=== PATIENT | male | born 1960 | race Caucasian/White ===

== ENCOUNTER 2018-11-17 09:46 | Emergency (ER) | payer OTHER ==
[2018-11-17] MEDS ORDERED: NA CHLORIDE 0.9% 1,000 ML ONE (10:10)
[2018-11-17 10:25] LABS: Protime INR 0.88
[2018-11-17 10:31] LABS: Absolute Lymphocytes (CBC) 2.1 K/uL (0.7-4.9); Basophils % 0.5 % (0-1.3); Hematocrit 40.9 % (39.6-49.0); Lymphocytes % 27.2 % (15.3-44.8); MPV 10.5 fL (7.6-11.3); RBC Red Blood Cell Count 4.61 M/uL (4.33-5.43)
[2018-11-17 10:38] LABS: ALT/SGPT 18 U/L (12-78); AST/SGOT 19 U/L (15-37); Alkaline Phosphatase 56 U/L (45-117); BUN Blood Urea Nitrogen 12 mg/dL (7-18); Bicarbonate 28 mmol/L (21-32); Bilirubin Direct 0.2 mg/dL (0-0.2); Bilirubin Total 0.5 mg/dL (0.2-1.0); Glucose Level 101 mg/dL (74-106); Magnesium 2.7 mg/dL (1.8-2.4); NT PRO-BNP 72 pg/mL (<125); Protein, Total 7.4 g/dL (6.4-8.2); Sodium Level 144 mmol/L (136-145); Troponin I < 0.02 ng/mL (0.0-0.045)
--- NOTE | 2018-11-17 11:07 | RAD REPORT ---
EXAM DESCRIPTION: RAD - Chest Single View - 11/17/2018 10:50 am CLINICAL HISTORY: CHEST PAIN Chest pain. COMPARISON: Chest Single View dated 03/21/2016 FINDINGS: Portable technique limits examination quality. The lungs are grossly clear. The heart is normal in size. No displaced fractures. IMPRESSION: No acute intrathoracic process suspected.
--- NOTE | 2018-11-17 11:19 | EKG ---
Test Date: 2018-11-17 Test Time: 10:09:32 Licensed And Certified Midwife: RADHAMES MEASUREMENT RESULTS: Intervals: Rate: 50 OR: 170 QRSD: 98 QT: 442 QTc: 402 Kent: P: 38 OR: 170 QRS: 6 T: 28 INTERPRETIVE STATEMENTS: Sinus bradycardia Otherwise normal ECG Compared to ECG 03/21/2016 14:17:26 No significant changes Electronically Signed On 11-17-18 11:18:35 CDT by Robert Crabtree
[2018-11-17] MEDS ORDERED: PROMETHAZINE 25 MG/ML VIAL ONE (11:34)
[2018-11-17] MEDS ORDERED: SUCRALFATE 1 GM TABLET ONE (11:42)
[2018-11-17 12:22] LABS: Urine Blood NEGATIVE (NEG); Urine Glucose NEGATIVE (NEG); Urine Protein NEGATIVE (NEG); Urine pH 6.5 (5.0-7.0)
[2018-11-17 13:18] LABS: Barbiturates NEGATIVE (NEGATIVE); Benzodiazepines NEGATIVE (NEGATIVE); Cocaine NEGATIVE (NEGATIVE); METHAMPHETAM NEGATIVE (NEGATIVE); Methadone NEGATIVE (NEGATIVE); Opiates NEGATIVE (NEGATIVE); Phencyclidine NEGATIVE (NEGATIVE); THC Cannibis POSITIVE (NEGATIVE)
--- NOTE | 2018-11-17 13:43 | EDPHYS ---
Physician Documentation [facility] Name: Orion Nava Age: 58 yrs Sex: Male : 1960 Arrival Date: 11/17/2018 Time: 09:47 Bed 6 Private MD: De Bustillos ED Physician Remy Montenegro HPI: 11/17 10:18 This 58 yrs old Male presents to ER via Wheelchair with complaints of Chest snw Tightness, Nausea, Anxiety. 10:18 The patient or guardian reports chest pain that is located primarily in the anterior snw chest wall, left. Onset: gradually, 4 day(s) ago, and became persistent. The pain does not radiate. Associated signs and symptoms: Pertinent positives: dizziness, nausea. The chest pain is described as a heaviness. Duration: The patient or guardian reports multiple episodes. Severity of pain: At its worst the pain was mild. The patient has not experienced similar symptoms in the past. The patient has not recently seen a physician, appt with Dr. Bustillos tomorrow. Pt states he got too hot on Friday, got cooled off, drank plenty of water, tea. Stood and had near syncope, ten minutes later pt stood again and had a syncopal episode. Historical: - Allergies: 10:01 No Known Allergies; iw - Home Meds: 10:01 None [Active]; iw - PMHx: 10:01 Ulcers; iw - PSHx: 10:01 Gastric Bypass; iw - Immunization history:: Adult Immunizations up to date. - Social history:: Smoking status: Patient uses tobacco products, smokes one-half pack cigarettes per day. - Ebola Screening: : Patient negative for fever greater than or equal to 101.5 degrees Fahrenheit, and additional compatible Ebola Virus Disease symptoms Patient denies exposure to infectious person Patient denies travel to an Ebola-affected area in the 21 days before illness onset No symptoms or risks identified at this time. ROS: 10:16 Constitutional: Negative for fever, chills, and weight loss, Eyes: Negative for injury, snw pain, redness, and discharge, ENT: Negative for injury, pain, and discharge, Neck: Negative for injury, pain, and swelling, Back: Negative for injury and pain, : Negative for injury, bleeding, discharge, and swelling, MS/Extremity: Negative for injury and deformity, Skin: Negative for injury, rash, and discoloration. 10:16 Cardiovascular: Positive for chest pain. 10:16 Respiratory: Positive for shortness of breath. 10:16 Abdomen/GI: Positive for nausea. 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 Exam: 10:16 Constitutional: This is a well developed, well nourished patient who is awake, alert, snw and in no acute distress. Head/Face: Normocephalic, atraumatic. Eyes: Pupils equal round and reactive to light, extra-ocular motions intact. Lids and lashes normal. Conjunctiva and sclera are non-icteric and not injected. Cornea within normal limits. Periorbital areas with no swelling, redness, or edema. ENT: Nares patent. No nasal discharge, no septal abnormalities noted. Tympanic membranes are normal and external auditory canals are clear. Oropharynx with no redness, swelling, or masses, exudates, or evidence of obstruction, uvula midline. Mucous membranes moist. Neck: Trachea midline, no thyromegaly or masses palpated, and no cervical lymphadenopathy. Supple, full range of motion without nuchal rigidity, or vertebral point tenderness. No Meningismus. Chest/axilla: Normal chest wall appearance and motion. Nontender with no deformity. No lesions are appreciated. Respiratory: Lungs have equal breath sounds bilaterally, clear to auscultation and percussion. No rales, rhonchi or wheezes noted. No increased work of breathing, no retractions or nasal flaring. Abdomen/GI: Soft, non-tender, with normal bowel sounds. No distension or tympany. No guarding or rebound. No evidence of tenderness throughout. Back: No spinal tenderness. No costovertebral tenderness. Full range of motion. Skin: Warm, dry with normal turgor. Normal color with no rashes, no lesions, and no evidence of cellulitis. MS/ Extremity: Pulses equal, no cyanosis. Neurovascular intact. Full, normal range of motion. Neuro: Awake and alert, GCS 15, oriented to person, place, time, and situation. Cranial nerves II-XII grossly intact. Motor strength 5/5 in all extremities. Sensory grossly intact. Cerebellar exam normal. Normal gait. Psych: Awake, alert, with orientation to person, place and time. Behavior, mood, and affect are within normal limits. 10:16 Cardiovascular: Rate: bradycardic, Rhythm: regular, Pulses: no pulse deficits are appreciated, Edema: is not appreciated. Vital Signs: 09:55 BP 172 / 83; Pulse 49; Resp 16 S; Temp 98.4(O); Pulse Ox 98% on R/A; Pain 2/10; aa5 10:10 BP 168 / 87; Pulse 50; Resp 18 S; Pulse Ox 98% on R/A; aa5 11:00 BP 177 / 81; Pulse 46; Resp 16 S; Pulse Ox 98% on R/A; aa5 12:00 BP 150 / 74; Pulse 44; Resp 18 S; Pulse Ox 98% on R/A; aa5 13:07 BP 142 / 68; Pulse 52; Resp 16 S; Pulse Ox 97% on R/A; jl7 12:00 Pt's HR fluctuating down to 38bpm, LEAD INGOT MOLDER was notified. aa5 MDM: 10:00 Patient medically screened. snw 13:35 The patient was not given aspirin in the Emergency Department. Not indicated due to snw patient's past medical history. ALVIN Risk Score: 1 - Recent [<24hrs] Severe Angina, TOTAL SCORE = 1. Data reviewed: vital signs, nurses notes, EKG, radiologic studies. Data interpreted: Pulse oximetry: on room air is 97 %. Interpretation: normal. Counseling: I had a detailed discussion with the patient and/or guardian regarding: the historical points, exam findings, and any diagnostic results supporting the discharge/admit diagnosis, the presence of at least one elevated blood pressure reading (>120/80) during this emergency department visit, lab results, radiology results, the need for outpatient follow up, to return to the emergency department if symptoms worsen or persist or if there are any questions or concerns that arise at home, smoking cessation. Special discussion: Based on the patient's history, exam, and Dx evaluation, there is no indication for emergent intervention or inpatient Tx. It is understood by the patient/guardian that if the Sx's persist or worsen they need to return immediately for re-evaluation. I have referred the patient to see his PCP for further evaluation of high blood pressure. Based on the history and exam findings, there is no indication for further emergent testing or inpatient evaluation. I discussed with the patient/guardian the need to see the primary care provider for further evaluation of the symptoms. 11/17 10:00 Order name: Basic Metabolic Panel [facility] 11/17 10:00 Order name: CBC with Diff [facility] 11/17 10:00 Order name: LFT's [facility] 11/17 10:00 Order name: Magnesium [facility] 11/17 10:00 Order name: NT PRO-BNP [facility] 11/17 10:00 Order name: PT-INR [facility] 11/17 10:14 Order name: Basic Metabolic Panel; Complete Time: 10:40 EDMS 11/17 10:14 Order name: Liver (Hepatic) Function; Complete Time: 10:40 EDMS 11/17 10:14 Order name: Troponin I; Complete Time: 10:40 EDMS 11/17 10:14 Order name: NT PRO-BNP; Complete Time: 10:40 EDMS 11/17 10:14 Order name: Magnesium; Complete Time: 10:40 EDMS 11/17 10:14 Order name: CBC with Automated Diff; Complete Time: 10:40 EDMS 11/17 10:14 Order name: Protime (+INR); Complete Time: 10:40 EDMS 11/17 10:00 Order name: XRAY Chest (1 view); Complete Time: 11:10 w 11/17 10:00 Order name: EKG; Complete Time: 10:16 snw 11/17 10:00 Order name: Cardiac monitoring; Complete Time: 10:00 [facility] 11/17 10:00 Order name: EKG - Nurse/Tech; Complete Time: 10:00 [facility] 11/17 10:00 Order name: IV Saline Lock; Complete Time: 10:00 [facility] 11/17 10:00 Order name: Labs collected and sent; Complete Time: 10:00 [facility] 11/17 10:00 Order name: O2 Per Protocol; Complete Time: 10:00 [facility] 11/17 10:00 Order name: O2 Sat Monitoring; Complete Time: 10:00 w 11/17 10:43 Order name: CPK; Complete Time: 11:19 snw 11/17 11:53 Order name: Urine Dipstick--Ancillary (enter results); Complete Time: 12:24 11/17 12:11 Order name: UDS; Complete Time: 13:31 snw 11/17 12:55 Order name: Troponin (emerg Dept Use Only) iw 11/17 12:56 Order name: EKG; Complete Time: 12:57 snw 11/17 11:41 Order name: Repeat Cardiac Enzymes at: 1300 and repeat EKG please; Complete Time: 13:42 snw 11/17 11:41 Order name: Urine Dipstick-Ancillary (obtain specimen); Complete Time: 11:43 snw Administered Medications: 10:10 Drug: NS 0.9% 1000 ml Route: IV; Rate: 1 bolus; Site: right antecubital; aa5 11:37 Follow up: IV Status: Completed infusion; IV Intake: 1000ml aa5 11:37 Drug: Phenergan 6.25 mg Route: IVP; Site: right antecubital; aa5 11:41 Follow up: Response: No adverse reaction aa5 11:41 Drug: CarafATE 1 grams Route: PO; aa5 12:30 Follow up: Response: No adverse reaction aa5 Disposition: 15:16 Co-signature as Attending Physician, Remy Montenegro MD. rn Disposition: 11/17/18 13:33 Discharged to Home. Impression: Chest pain, unspecified, Syncope and collapse. - Condition is Stable. - Discharge Instructions: Nonspecific Chest Pain, Alcohol Use Disorder, Gastroesophageal Reflux Disease, Adult, Hypertension, Steps to Quit Smoking, Smoking Hazards, Syncope, Heat Exhaustion Information, Rehydration, Adult. - Prescriptions for Carafate 1 gram Oral Tablet - take 1 tablet by ORAL route 4 times per day take on an empty stomach, beginning on waking and last dose at bedtime; 100 tablet. - Work release form, Medication Reconciliation Form, Thank You Letter, Antibiotic Education, Prescription Opioid Use form. - Follow up: Emergency Department; When: As needed; Reason: Worsening of condition. Follow up: De Bustillos MD; When: Tomorrow; Reason: as scheduled. Signatures: Dispatcher [employer] Leonela Love FNP-C CASE REVIEWER-Csnw Darlene Vargas, RN Remy Wall MD MD rn Calderon, Audri, RN RN aa5 Vicente Huddleston RN RN jl7 Corrections: (The following items were deleted from the chart) 13:51 13:33 11/17/2018 13:33 Discharged to Home. Impression: Chest pain, unspecified; Syncope jl7 and collapse. Condition is Stable. Forms are Medication Reconciliation Form, Thank You Letter, Antibiotic Education, Prescription Opioid Use. Follow up: Emergency Department; When: As needed; Reason: Worsening of condition. Follow up: De Bustillos; When: Tomorrow; Reason: as scheduled. snw
--- NOTE | 2018-11-17 13:43 | ER ---
Nurse's Notes [facility] Name: Orion Nava Age: 58 yrs Sex: Male : 1960 Arrival Date: 11/17/2018 Time: 09:47 Bed 6 Private MD: De Bustillos Diagnosis: Chest pain, unspecified;Syncope and collapse Presentation: 11/17 09:55 Risk Assessment: Do you want to hurt yourself or someone else? Patient reports no aa5 desire to harm self or others. Initial Sepsis Screen: Does the patient meet any 2 criteria? No. Patient's initial sepsis screen is negative. Does the patient have a suspected source of infection? No. Patient's initial sepsis screen is negative. Care prior to arrival: None. 09:56 Presenting complaint: Patient states: passed out Friday while working outside, feels iw like he never fully recovered, today started feeling bad today, is nauseated and light headed today, also feels chest tightness and is anxious, not vomiting, has hx of GI ulcer. Transition of care: patient was not received from another setting of care. Onset of symptoms was November 17, 2018. 09:56 Method Of Arrival: Wheelchair iw 10:00 Acuity: DENA 2 iw Historical: - Allergies: 10:01 No Known Allergies; iw - Home Meds: 10:01 None [Active]; iw - PMHx: 10:01 Ulcers; iw - PSHx: 10:01 Gastric Bypass; iw - Immunization history:: Adult Immunizations up to date. - Social history:: Smoking status: Patient uses tobacco products, smokes one-half pack cigarettes per day. - Ebola Screening: : Patient negative for fever greater than or equal to 101.5 degrees Fahrenheit, and additional compatible Ebola Virus Disease symptoms Patient denies exposure to infectious person Patient denies travel to an Ebola-affected area in the 21 days before illness onset No symptoms or risks identified at this time. Screenin:20 Abuse screen: Denies threats or abuse. Nutritional screening: No deficits noted. aa5 Tuberculosis screening: No symptoms or risk factors identified. Fall Risk None identified. Assessment: 09:55 General: Appears uncomfortable, Behavior is calm, cooperative. Pain: Complains of pain aa5 in anterior aspect of left upper chest and left breast and LUQ Pain does not radiate. Pain currently is 2 out of 10 on a pain scale. Quality of pain is described as pressure, Pain began today Is continuous. Neuro: Level of Consciousness is awake, alert, obeys commands, Oriented to person, place, time, situation, Mysql Database Administrator are equal bilaterally Moves all extremities. Speech is normal, Facial symmetry appears normal, Pupils are PERRLA. Cardiovascular: Reports chest pain, lightheadedness, nausea, shortness of breath, syncope, Heart tones S1 S2 present Edema is absent. Rhythm is regular. Respiratory: Reports shortness of breath at rest on exertion since yesterday Airway is patent Respiratory effort is even, unlabored, Respiratory pattern is regular, symmetrical, Breath sounds are clear bilaterally. GI: Abdomen is round non-distended, Bowel sounds present X 4 quads. Abd is soft and non tender X 4 quads. Reports nausea, Patient currently denies vomiting. : No signs and/or symptoms were reported regarding the genitourinary system. Denies burning with urination, inability to void. EENT: No signs and/or symptoms were reported regarding the EENT system. Derm: Skin is pink, warm \\T\\ dry. Musculoskeletal: Range of motion: intact in all extremities. 10:10 Reassessment: Patient is alert, oriented x 3, equal unlabored respirations, skin aa5 warm/dry/pink. Pt notified of wait time for lab results and radiology results. . Pain: Pain currently is 2 out of 10 on a pain scale. 11:30 Reassessment: Pt c/o nausea, ERP notified, see MAR for orders. jl7 11:38 Reassessment: Patient is alert, oriented x 3, equal unlabored respirations, skin aa5 warm/dry/pink. Pt c/o nausea and c/o abd burning, pt states "I think my ulcer is bothering me". DRYING ROOM OPERATOR at bedside. . Pain: Pain currently is 2 out of 10 on a pain scale. 12:00 Reassessment: Patient is alert, oriented x 3, equal unlabored respirations, skin aa5 warm/dry/pink. Awaiting repeat troponin and EKG at 1300, pt notified of wait time. . 13:10 Reassessment: Patient is alert, oriented x 3, equal unlabored respirations, skin aa5 warm/dry/pink. Repeat EKG and repeat troponin completed . Vital Signs: 09:55 BP 172 / 83; Pulse 49; Resp 16 S; Temp 98.4(O); Pulse Ox 98% on R/A; Pain 2/10; aa5 10:10 BP 168 / 87; Pulse 50; Resp 18 S; Pulse Ox 98% on R/A; aa5 11:00 BP 177 / 81; Pulse 46; Resp 16 S; Pulse Ox 98% on R/A; aa5 12:00 BP 150 / 74; Pulse 44; Resp 18 S; Pulse Ox 98% on R/A; aa5 13:07 BP 142 / 68; Pulse 52; Resp 16 S; Pulse Ox 97% on R/A; jl7 12:00 Pt's HR fluctuating down to 38bpm, DRYING ROOM OPERATOR was notified. aa5 ED Course: 09:47 Patient arrived in ED. mr 09:48 De Bustillos MD is Private Physician. mr 09:50 Patient has correct armband on for positive identification. Placed in gown. Bed in low aa5 position. Call light in reach. Side rails up X2. vehicle dismantler on. Pulse ox on. NIBP on. 09:50 Arm band placed on. aa5 09:51 [facility]C [facility] snw 09:51 Remy Montenegro MD is Attending Physician. snw 09:51 Indira Mckoy, JULIANO is Primary Nurse. aa5 09:58 Initial lab(s) drawn, by mi. Inserted saline lock: 20 gauge in right antecubital area, aa5 using aseptic technique. Blood collected. 10:00 Triage completed. iw 10:19 EKG done, by racking technician. reviewed by Leonela [facility]. sm3 10:46 No provider procedures requiring assistance completed. Patient maintains SpO2 aa5 saturation greater than 95% on room air. 10:55 XRAY Chest (1 view) In Process Unspecified. EDMS 13:15 EKG done, by racking technician. reviewed by Remy Montenegro MD. sm3 13:32 De Bustillos MD is Referral Physician. snw 13:51 IV discontinued, intact, bleeding controlled, No redness/swelling at site. Pressure jl7 dressing applied. Administered Medications: 10:10 Drug: NS 0.9% 1000 ml Route: IV; Rate: 1 bolus; Site: right antecubital; aa5 11:37 Follow up: IV Status: Completed infusion; IV Intake: 1000ml aa5 11:37 Drug: Phenergan 6.25 mg Route: IVP; Site: right antecubital; aa5 11:41 Follow up: Response: No adverse reaction aa5 11:41 Drug: CarafATE 1 grams Route: PO; aa5 12:30 Follow up: Response: No adverse reaction aa5 Intake: 11:37 IV: 1000ml; Total: 1000ml. aa5 Outcome: 13:33 Discharge ordered by MD. arnold 13:51 Discharged to home ambulatory. jl7 13:51 Condition: stable 13:51 Discharge instructions given to patient, Instructed on discharge instructions, follow up and referral plans. medication usage, Demonstrated understanding of instructions, follow-up care, medications, Prescriptions given X 1. 13:51 Patient left the ED. jl7 Signatures: Dispatcher [employer] EDMS Leonela Roger, ORTIZ-C SCREEN PRINTING EQUIPMENT SETTER-Csnw DiaSusan mr Darlene Vargas, RN JULIANO iw Indira Mckoy RN RN aa5 Leal, Jahala, RN RN jl7 Lala Jimenes 3 Corrections: (The following items were deleted from the chart) 11:29 09:55 Cardiovascular: Heart tones S1 S2 present Edema is absent. Rhythm is regular aa5 aa5
--- NOTE | 2018-11-17 18:25 | EKG ---
Test Date: 2018-11-17 Test Time: 13:11:49 Video News Editor: RADHAMES MEASUREMENT RESULTS: Intervals: Rate: 55 CA: 172 QRSD: 100 QT: 432 QTc: 413 Coward: P: 42 CA: 172 QRS: 16 T: 27 INTERPRETIVE STATEMENTS: Sinus bradycardia Otherwise normal ECG Compared to ECG 11/17/2018 10:09:32 No significant changes Electronically Signed On 11-17-18 18:23:42 CDT by Robert Crabtree
== END 2018-11-17 13:51 | disposition home or self-care (01) ==
LOC: ER 09:46
DX: R55 Syncope and collapse (principal); F17.210 Nicotine dependence, cigarettes, uncomplicated
CPT/HCPCS: 93005 ×2; 85025; 80048; 36415; 83735; 82550; 85610; 80076; 80307 ×8; 81003; 84484 ×2; 83880; 71045; J2550; J7030; 96361; 96374; 99285

== ENCOUNTER 2020-02-07 08:24 | Emergency (ER) | payer OTHER ==
--- NOTE | 2020-02-07 08:50 | ER ---
Nurse's Notes [facility] Name: Orion Nava Age: 59 yrs Sex: Male : 1960 Arrival Date: 02/07/2020 Time: 08:26 Bed 20 Private MD: Diagnosis: Unilateral inguinal hernia, without obstruction or gangrene Presentation: 02/06 08:38 Chief complaint: Patient states: Swelling to R groin area that began yesterday, denies ph fever, N/V/D. Coronavirus screen: Client denies travel out of the [place] in the last 14 days. At this time, the client does not indicate any symptoms associated with coronavirus-19. Ebola Screen: No symptoms or risks identified at this time. Initial Sepsis Screen: Does the patient meet any 2 criteria? No. Patient's initial sepsis screen is negative. Does the patient have a suspected source of infection? No. Patient's initial sepsis screen is negative. Risk Assessment: Do you want to hurt yourself or someone else? Patient reports no desire to harm self or others. Onset of symptoms was February 07, 2020. 08:38 Method Of Arrival: Ambulatory ph 08:38 Acuity: DENA 3 ph Historical: - Allergies: 08:42 No Known Allergies; ph - PMHx: 08:42 Diabetes (prior to gastric bypass); Ulcers; ph - PSHx: 08:42 Gastric Bypass; ph - Immunization history:: Adult Immunizations unknown. - Social history:: Smoking status: Patient reports the use of cigarette tobacco products, smokes one-half pack cigarettes per day. - Family history:: not pertinent. - Hospitalizations: : No recent hospitalization is reported. Screenin:36 Abuse screen: Denies threats or abuse. Nutritional screening: No deficits noted. em Tuberculosis screening: No symptoms or risk factors identified. Fall Risk None identified. Assessment: 08:44 General: Appears in no apparent distress. comfortable, Behavior is calm, cooperative, em appropriate for age, Denies fever. Pain: Complains of pain in right inguinal area Pain currently is 4 out of 10 on a pain scale. Neuro: Level of Consciousness is awake, alert, obeys commands, Oriented to person, place, time, situation, Appropriate for age. Cardiovascular: Capillary refill < 3 seconds Patient's skin is warm and dry. Respiratory: Airway is patent Respiratory effort is even, unlabored, Respiratory pattern is regular, symmetrical. GI: Abdomen is flat, Patient currently denies nausea, vomiting. Derm: Skin is intact, is healthy with good turgor, Skin is pink, warm \T\ dry. Musculoskeletal: Capillary refill < 3 seconds, Range of motion: intact in all extremities. Vital Signs: 08:38 BP 177 / 90; Pulse 75; Resp 18; Temp 97.8; Pulse Ox 98% on R/A; Weight 81.65 kg; Height ph 5 ft. 8 in. (172.72 cm); 08:38 Body Mass Index 27.37 (81.65 kg, 172.72 cm) ph ED Course: 08:26 Patient arrived in ED. ds1 08:28 Remy Montenegro MD is Attending Physician. rn 08:35 Maksim Marte RN is Primary Nurse. em 08:36 Patient has correct armband on for positive identification. Placed in gown. Bed in low em position. Call light in reach. Pulse ox on. NIBP on. 08:40 Triage completed. ph 08:45 Arm band placed on. em 08:49 Garret Gill MD is Referral Physician. rn 09:05 No provider procedures requiring assistance completed. Patient did not have IV access em during this emergency room visit. Administered Medications: No medications were administered Outcome: 08:50 Discharge ordered by . rn 09:05 Discharged to home ambulatory. em 09:05 Condition: improved 09:05 Discharge instructions given to patient, Instructed on discharge instructions, follow up and referral plans. Demonstrated understanding of instructions, follow-up care. 09:07 Patient left the ED. em Signatures: Maksim Marte, RN RN Jenna Smith ds1 Remy Montenegro MD MD rn Hall, Patricia, RN RN
--- NOTE | 2020-02-07 08:51 | EDPHYS ---
Physician Documentation [facility] Name: Orion Nava Age: 59 yrs Sex: Male : 1960 Arrival Date: 02/07/2020 Time: 08:26 Bed 20 Private MD: ED Physician Remy Montenegro HPI: 02/06 08:44 This 59 yrs old Male presents to ER via Ambulatory with complaints of rn Abdominal Pain. 08:44 The patient presents with abdominal pain right groin. Onset: The symptoms/episode rn began/occurred last night. The symptoms do not radiate. Associated signs and symptoms: Pertinent negatives: nausea and vomiting, blood in stools, constipation, diarrhea, dysuria, fever, hematuria, testicular pain. The symptoms are described as achy. Modifying factors: The symptoms are alleviated by nothing, the symptoms are aggravated by nothing. Severity of pain: At its worst the pain was moderate in the emergency department the pain is unchanged. The patient has experienced similar episodes in the past. The patient has not recently seen a physician. Reports approx 1 year of groin pain, intermittent, with swelling, has not had it looked at, no trauma. Is having bowel movement. Notices worse with straining. . Historical: - Allergies: 08:42 No Known Allergies; ph - PMHx: 08:42 Diabetes (prior to gastric bypass); Ulcers; ph - PSHx: 08:42 Gastric Bypass; ph - Immunization history:: Adult Immunizations unknown. - Social history:: Smoking status: Patient reports the use of cigarette tobacco products, smokes one-half pack cigarettes per day. - Family history:: not pertinent. - Hospitalizations: : No recent hospitalization is reported. ROS: 08:44 Constitutional: Negative for fever, chills, and weight loss, Eyes: Negative for injury, rn pain, redness, and discharge, Neck: Negative for injury, pain, and swelling, Cardiovascular: Negative for chest pain, palpitations, and edema, Respiratory: Negative for shortness of breath, cough, wheezing, and pleuritic chest pain, Abdomen/GI: + right groin, neg for vomiting/diarrhea Back: Negative for injury and pain, : Negative for injury, bleeding, discharge, and swelling, MS/Extremity: Negative for injury and deformity, Neuro: Negative for headache, weakness, numbness, tingling, and seizure. Exam: 08:44 Constitutional: This is a well developed, well nourished patient who is awake, alert, rn and in no acute distress. Abdomen/GI: soft, non-tender, + right groin with soft swelling extendeding to but not involving right scrotum, minimal tenderness, easily reduced while supine. Male : Normal genitalia with no discharge or lesions. Vital Signs: 08:38 BP 177 / 90; Pulse 75; Resp 18; Temp 97.8; Pulse Ox 98% on R/A; Weight 81.65 kg; Height ph 5 ft. 8 in. (172.72 cm); 08:38 Body Mass Index 27.37 (81.65 kg, 172.72 cm) ph Procedures: 08:44 Performed Reduction of right inguinal hernia. Using constant pressure, successful rn reduction in one attempt, defect palpated, resolution of pain immediately. . MDM: 08:28 Patient medically screened. rn 08:44 Differential diagnosis: inguinal hernia. Data reviewed: vital signs, nurses notes, and rn as a result, I will discharge patient. Counseling: I had a detailed discussion with the patient and/or guardian regarding: the historical points, exam findings, and any diagnostic results supporting the discharge/admit diagnosis, the need for outpatient follow up, to return to the emergency department if symptoms worsen or persist or if there are any questions or concerns that arise at home. Response to treatment: the patient's symptoms have resolved after treatment, the patient's condition has returned to base line, the patient is now symptom free, and as a result, I will discharge patient. Special discussion: I discussed with the patient/guardian in detail that at this point there is no indication for admission to the hospital. It is understood, however, that if the symptoms persist or worsen the patient needs to return immediately for re-evaluation. Based on the history and exam findings, there is no indication for further emergent testing or inpatient evaluation. I discussed with the patient/guardian the need to see the general surgeon for further evaluation of the symptoms. Administered Medications: No medications were administered Disposition: 02/07/20 08:50 Discharged to Home. Impression: Unilateral inguinal hernia, without obstruction or gangrene. - Condition is Stable. - Discharge Instructions: Hernia, Adult, Inguinal Hernia, Adult. - Medication Reconciliation Form, Thank You Letter, Antibiotic Education, Prescription Opioid Use form. - Follow up: Garret Gill MD; When: As needed; Reason: Recheck today's complaints, Re-evaluation by your physician. - Problem is an ongoing problem. - Symptoms have improved. Signatures: Maksim Marte RN RN Remy Kaplan MD MD rn Hall, Patricia, RN RN ph Corrections: (The following items were deleted from the chart) 09:07 08:50 02/07/2020 08:50 Discharged to Home. Impression: Unilateral inguinal hernia, em without obstruction or gangrene. Condition is Stable. Forms are Medication Reconciliation Form, Thank You Letter, Antibiotic Education, Prescription Opioid Use. Follow up: Garret Gill; When: As needed; Reason: Recheck today's complaints, Re-evaluation by your physician. Problem is an ongoing problem. Symptoms have improved. rn
[2020-02-07 09:42] VITALS: BP 177/90; TEMP 97.8; O2SAT 98
== END 2020-02-07 09:07 | disposition home or self-care (01) ==
LOC: ER 08:24
DX: K40.90 Unilateral inguinal hernia, without obstruction or gangrene, not specified as recurrent (principal); F17.210 Nicotine dependence, cigarettes, uncomplicated; Z98.84 Bariatric surgery status
CPT/HCPCS: 99283

== ENCOUNTER 2020-09-23 08:18 | Emergency (ER) | payer OTHER ==
--- OUTSIDE RECORDS SUMMARY | 2020-09-23 08:42 | XMS REPORT | Continuity of Care Document ---
:1960 Author Organization [facility] t Address [address] [place] [address] Care Team Providers Name Role Phone Provider, Urgent Care Attending Clinician Unavailable Doctor Unassigned, Name Attending Clinician Unavailable Problems This patient has no known problems. Allergies, Adverse Reactions, Alerts This patient has no known allergies or adverse reactions. Medications This patient has no known medications. Procedures This patient has no known procedures. Encounters Start End Encounter Admission Attending Care Care Encounter Source Date/Time Date/Time Type Type Clinicians Facility Department ID 2020-08-17 2020-08-17 Urgent Provider, [facility] [id number] 11:12:39 12:16:15 Care [facility] [id number] [facility] [id number] [address] [phone] [address] 2020-08-17 2020-08-17 Letter Doctor ARREOLA [id number] 00:00:00 00:00:00 (Out) UnassignedJAMAAL [id number] [place] [facility] [id number] 2020-08-17 2020-08-17 Letter Doctor ARREOLA [id number] 00:00:00 00:00:00 (Out) UnassignedJAMAAL [id number] [place] [facility] [id number] 2020-08-17 2020-08-17 Orders Doctor ARREOLA [id number] 00:00:00 00:00:00 Only Unassigned, JAMAAL [id number] [place] [facility] [id number] Results This patient has no known results.
[2020-09-23] MEDS ORDERED: KETOROLAC 30 MG/ML INJ ONE (09:10)
--- NOTE | 2020-09-23 09:43 | RAD REPORT ---
EXAM DESCRIPTION: RAD - Ribs Left - 09/23/2020 9:34 am CLINICAL HISTORY: PAIN Trauma, left rib pain COMPARISON: Chest Single View dated 11/17/2018 FINDINGS: No displaced rib fractures seen. The lungs are clear. The heart is normal in size.
--- NOTE | 2020-09-23 10:00 | ER ---
Nurse's Notes [facility] Name: Orion Nava Age: 60 yrs Sex: Male : 1960 Arrival Date: 09/23/2020 Time: 08:25 Bed 15 Private MD: Diagnosis: Multiple fractures of ribs, left side-Clinical Diagnosis - No fractures seen on x-ray Presentation: 09/23 08:30 Chief complaint: Patient states: fall 6 days ago hitting left back. pt here because the tr6 pain is unbearable. pt states he took hydrocodone yesterday from his friend with relief for about 3 hours. pt also states that he developed a cough about 2-3 days ago. Coronavirus screen: At this time, unable to obtain information related to travel outside the [place] Ebola Screen: No symptoms or risks identified at this time. Initial Sepsis Screen: Does the patient meet any 2 criteria? No. Patient's initial sepsis screen is negative. Does the patient have a suspected source of infection? No. Patient's initial sepsis screen is negative. Risk Assessment: Do you want to hurt yourself or someone else? Patient reports no desire to harm self or others. 08:30 Method Of Arrival: Ambulatory tr6 08:33 Onset of symptoms was September 16, 2020. tr6 08:40 Acuity: DENA 3 tr6 Triage Assessment: 08:31 General: Appears uncomfortable, Behavior is calm, cooperative, appropriate for age. tr6 Pain: Complains of pain in left lower back. EENT: No deficits noted. Neuro: No deficits noted. Cardiovascular: No deficits noted. Respiratory: Reports cough that is non-productive, pain with cough Breath sounds are coarse in left posterior upper lobe and left posterior lower lobe. GI: No deficits noted. : No deficits noted. Derm: Skin is intact, Bruising that is dark purple, on left side/hip and left lower back. Musculoskeletal: No deficits noted. Historical: - PSHx: 08:41 gastric bypass; hernia repair; tr6 - Immunization history:: Adult Immunizations up to date, Client reports having NOT received the Covid vaccine. - Social history:: Smoking status: unknown Smoking status: Patient reports the use of cigarette tobacco products. Screenin:33 Abuse screen: Denies threats or abuse. Denies injuries from another. Nutritional tr6 screening: No deficits noted. Tuberculosis screening: No symptoms or risk factors identified. Fall Risk Fall in past 12 months (25 points). Assessment: 08:41 Reassessment: see triage assessment. MD Manuel at bedside. tr6 09:37 Reassessment: pt returned from xray. tr6 Vital Signs: 08:37 BP 196 / 92; Pulse 62; Resp 12; Temp 98.2(O); Pulse Ox 100% on R/A; Weight 83.91 kg; tr6 Height 5 ft. 8 in. (172.72 cm); 09:32 BP 160 / 85; Pulse 60; Resp 16; Pulse Ox 100% on R/A; mh5 10:14 BP 157 / 88; Pulse 68; Resp 18; Pulse Ox 100% on R/A; tr6 08:37 Body Mass Index 28.13 (83.91 kg, 172.72 cm) tr6 ED Course: 08:25 Patient arrived in ED. ds1 08:27 Andria Rubalcava, JULIANO is Primary Nurse. tr6 08:30 Berry Manuel MD is Attending Physician. kdr 08:33 Arm band placed on right wrist. tr6 08:33 No provider procedures requiring assistance completed. tr6 08:34 Resting quietly. Awaiting ED provider evaluation. tr6 08:34 Patient has correct armband on for positive identification. Bed in low position. Call tr6 light in reach. Side rails up X 1. Pulse ox on. NIBP on. Door closed. Noise minimized. Visitors limited. Lights dimmed. Moved to private room. Warm blanket given. 08:40 Triage completed. tr6 09:13 Ribs Left XRAY Sent. sv 09:34 Ribs Left XRAY In Process Unspecified. EDMS 10:03 Patient did not have IV access during this emergency room visit. tr6 Administered Medications: 08:49 Drug: Ketorolac 15 mg Route: IM; Site: left deltoid; tr6 Outcome: 09:59 Discharge ordered by . kdr 10:02 Discharged to home ambulatory. tr6 10:02 Condition: stable 10:02 Discharge instructions given to patient, Instructed on discharge instructions, follow up and referral plans. no drinking with medication, medication usage, safety practices, Demonstrated understanding of instructions, follow-up care, medications. 10:14 Patient left the ED. tr6 Signatures: Dispatcher [employer] Shelia Stuart RN RN Berry Manuel MD MD kdr Sanford, Demi [facility] Andria Rubalcava RN RN tr6 Corrections: (The following items were deleted from the chart) 08:41 08:30 Chief complaint: Patient states: fall 6 days ago hitting left back. pt here tr6 because the pain is unbearable tr6 08:42 08:31 PMHx: Diabetes (prior to gastric bypass); tr6 tr6 08:42 08:31 PMHx: Ulcers; tr6 tr6 08:42 08:41 Allergies: No Known Allergies; tr6 tr6 08:53 08:31 Respiratory: No deficits noted. tr6 tr6 09:38 09:32 Reassessment: tr6 tr6 09:38 09:33 Reassessment: tr6 tr6 09:38 09:37 Reassessment: pt returned from CT tr6 tr6
--- NOTE | 2020-09-23 10:00 | EDPHYS ---
Physician Documentation [facility] Name: Orion Nava Age: 60 yrs Sex: Male : 1960 Arrival Date: 09/23/2020 Time: 08:25 Bed 15 Private MD: ED Physician Berry Manuel HPI: 09/23 09:15 This 60 yrs old Male presents to ER via Ambulatory with complaints of Rib kdr Pain. 09:15 The patient or guardian reports chest pain that is located primarily in the left kdr lateral posterior chest. Onset: acutely, 6 day(s) ago. The pain does not radiate. Associated signs and symptoms: The patient has no apparent associated signs or symptoms. The chest pain is described as sharp. Duration: The patient or guardian reports multiple episodes, that are intermittent, Related to movement and coughing. Severity of pain: At its worst the pain was moderate severe today, in the emergency department the pain has improved mildly. The patient has not experienced similar symptoms in the past. The patient has not recently seen a physician. The patient fell on his boat earlier in the week on his left side - since has had left lateral posterior thorax pain especially with movement, coughing, etc.. Historical: - PSHx: 08:41 gastric bypass; hernia repair; tr6 - Immunization history:: Adult Immunizations up to date, Client reports having NOT received the Covid vaccine. - Social history:: Smoking status: unknown Smoking status: Patient reports the use of cigarette tobacco products. ROS: 09:15 Constitutional: Negative for fever, chills, and weight loss, Eyes: Negative for injury, kdr pain, redness, and discharge, ENT: Negative for injury, pain, and discharge, Neck: Negative for injury, pain, and swelling, Respiratory: Negative for shortness of breath, cough, wheezing, and pleuritic chest pain, Abdomen/GI: Negative for abdominal pain, nausea, vomiting, diarrhea, and constipation, Back: Negative for injury and pain, : Negative for injury, bleeding, discharge, and swelling, MS/Extremity: Negative for injury and deformity, Skin: Negative for injury, rash, and discoloration, Neuro: Negative for headache, weakness, numbness, tingling, and seizure activity. Psych: Negative for depression, anxiety, suicide ideation, homicidal ideation, and hallucinations, Allergy/Immunology: Negative for hives, rash, and allergies, Endocrine: Negative for neck swelling, polydipsia, polyuria, polyphagia, and marked weight changes, Hematologic/Lymphatic: Negative for swollen nodes, abnormal bleeding, and unusual bruising. 09:15 Cardiovascular: Positive for chest pain, with cough, with movement, of the left lateral posterior chest. Exam: 09:15 Constitutional: This is a well developed, well nourished patient who is awake, alert, kdr and in no acute distress. Head/Face: Normocephalic, atraumatic. Eyes: Pupils equal round and reactive to light, extra-ocular motions intact. Lids and lashes normal. Conjunctiva and sclera are non-icteric and not injected. Cornea within normal limits. Periorbital areas with no swelling, redness, or edema. Neck: Trachea midline, no thyromegaly or masses palpated, and no cervical lymphadenopathy. Supple, full range of motion without nuchal rigidity, or vertebral point tenderness. No Meningismus. Cardiovascular: Regular rate and rhythm with a normal S1 and S2. No gallops, murmurs, or rubs. Normal PMI, no JVD. No pulse deficits. Respiratory: Lungs have equal breath sounds bilaterally, clear to auscultation and percussion. No rales, rhonchi or wheezes noted. No increased work of breathing, no retractions or nasal flaring. Abdomen/GI: Soft, non-tender, with normal bowel sounds. No distension or tympany. No guarding or rebound. No evidence of tenderness throughout. Back: No spinal tenderness. No costovertebral tenderness. Full range of motion. Skin: Warm, dry with normal turgor. Normal color with no rashes, no lesions, and no evidence of cellulitis. MS/ Extremity: Pulses equal, no cyanosis. Neurovascular intact. Full, normal range of motion. Neuro: Awake and alert, GCS 15, oriented to person, place, time, and situation. Cranial nerves II-XII grossly intact. Motor strength 5/5 in all extremities. Sensory grossly intact. Cerebellar exam normal. Normal gait. Psych: Awake, alert, with orientation to person, place and time. Behavior, mood, and affect are within normal limits. 09:15 Chest/axilla: Inspection: ecchymosis, that is mild, of the left lateral posterior chest Palpation: crepitus, is not appreciated, tenderness, that is moderate, of the left lateral posterior chest. Vital Signs: 08:37 BP 196 / 92; Pulse 62; Resp 12; Temp 98.2(O); Pulse Ox 100% on R/A; Weight 83.91 kg; tr6 Height 5 ft. 8 in. (172.72 cm); 09:32 BP 160 / 85; Pulse 60; Resp 16; Pulse Ox 100% on R/A; mh5 10:14 BP 157 / 88; Pulse 68; Resp 18; Pulse Ox 100% on R/A; tr6 08:37 Body Mass Index 28.13 (83.91 kg, 172.72 cm) tr6 MDM: 09:15 Data reviewed: vital signs, nurses notes, lab test result(s), radiologic studies. kdr Counseling: I had a detailed discussion with the patient and/or guardian regarding: the historical points, exam findings, and any diagnostic results supporting the discharge/admit diagnosis, radiology results, the need for outpatient follow up. 09:59 Patient medically screened. kdr 10:09 ED course: DATA ARCHITECT: 140/070/00: 230. kdr 09/23 08:46 Order name: Ribs Left XRAY; Complete Time: 10:02 kdr Administered Medications: 08:49 Drug: Ketorolac 15 mg Route: IM; Site: left deltoid; tr6 Disposition Summary: 09/23/20 09:59 Discharge Ordered Location: Home kdr Problem: new kdr Symptoms: have improved kdr Condition: Stable kdr Diagnosis - Multiple fractures of ribs, left side - Clinical Diagnosis - No fractures seen on kdr x-ray Followup: kdr - With: Private Physician - When: 2 - 3 days - Reason: If symptoms return, Further diagnostic work-up, Recheck today's complaints, Continuance of care, Re-evaluation by your physician Discharge Instructions: - Discharge Summary Sheet kdr - Rib Fracture, [id number] kdr Forms: - Medication Reconciliation Form kdr - Thank You Letter kdr - Prescription Opioid Use kdr Prescriptions: - Tramadol 50 mg Oral Tablet - take 1 tablet by ORAL route every 8 hours as needed; 20 tablet; Refills: 0, kdr Product Selection Permitted Signatures: Dispatcher [employer] EDKS Berry Manuel MD MD kdr Ramnanan, Andria, RN RN tr6 Corrections: (The following items were deleted from the chart) 08: 08:31 PMHx: Diabetes (prior to gastric bypass); tr6 tr6 08:42 08:31 PMHx: Ulcers; tr6 tr6 08: 08:41 Allergies: No Known Allergies; tr6 tr6 09:04 08:47 Chest Single View+RAD.RAD.BRZ ordered. EDMS EDMS
[2020-09-23] MEDS ORDERED: MORPHINE 4 MG/ML SYR ONE (10:07)
[2020-09-23] MEDS ORDERED: ONDANSETRON 4 MG/2 ML VIAL ONE (10:07)
[2020-09-23 10:19] VITALS: TEMP 98.2; O2SAT 100
[2020-09-23 10:22] VITALS: BP 157/88
== END 2020-09-23 10:14 | disposition home or self-care (01) ==
LOC: ER 08:18
DX: S22.42XA Multiple fractures of ribs, left side, initial encounter for closed fracture (principal)
CPT/HCPCS: 96372; 99283; J2405